=== PATIENT | male | born 1965 | race Caucasian/White ===

== ENCOUNTER 2018-02-13 15:18 | Emergency (ER) | payer MEDICAID ==
[~2018-02-13] VITALS: Ht 157.5 cm; Wt 83.7 kg
[2018-02-13 15:33] VITALS: Ht 157.5 cm; Wt 83.7 kg
[2018-02-13 18:55] VITALS: BP 130/74
== END 2018-02-13 18:55 | disposition home or self-care (01) ==
LOC: ED 15:18
DX: S97.81XA Crushing injury of right foot, initial encounter (principal); I10 Essential (primary) hypertension; Z90.49 Acquired absence of other specified parts of digestive tract; W20.8XXA Other cause of strike by thrown, projected or falling object, initial encounter; Y93.89 Activity, other specified; Y92.098 Other place in other non-institutional residence as the place of occurrence of the external cause; Y99.8 Other external cause status
CPT/HCPCS: J1885; Q0092

== ENCOUNTER 2018-03-07 09:12 | Emergency (ER) | payer MEDICAID ==
[~2018-03-07] VITALS: Ht 157.5 cm; Wt 83.9 kg
[2018-03-07 09:14] VITALS: Ht 157.5 cm; Wt 83.9 kg
[2018-03-07 11:34] VITALS: BP 137/81
== END 2018-03-07 11:34 | disposition home or self-care (01) ==
LOC: ED 09:12
DX: S97.81XD Crushing injury of right foot, subsequent encounter (principal); W18.30XD Fall on same level, unspecified, subsequent encounter